=== PATIENT | female | born 1940 | race African-American/Black ===

== ENCOUNTER 2019-03-05 12:40 | Inpatient (IN) | payer MEDICARE, MEDICAID ==
[~2019-03-05] VITALS: Ht 160 cm; Wt 42.2 kg
[2019-03-05] MEDS ORDERED: IOHEXOL-350 100 ML BOTTLE ONE (14:35)
[2019-03-05 14:50] LABS: BASOPHILS % 0.4 % (0.0-2.0); EOSINOPHILS % 1.4 % (0.0-5.0); HEMATOCRIT. 31.4 % (36.0-48.0); HEMOGLOBIN. 10.5 g/dL (12.0-16.0); LYMPHOCYTES % 40.8 % (20.0-50.0); MEAN CORPUSCULAR HEMOGLOBIN 29.3 pg (28.0-32.0); MEAN CORPUSCULAR VOLUME 87.8 fL (81.0-99.0); MONOCYTES % 7.8 % (2.0-8.0); NEUTROPHILS % 49.6 % (40.0-76.0); PLATELET 145 x1000/uL (130-400); RED BLOOD CELL COUNT 3.58 mill/uL (4.2-5.4); RED CELL DISTRIBUTION WIDTH 13.1 % (11.6-14.6)
[2019-03-05 14:51] LABS: CHLORIDE 109 mEq/L (98-107)
[2019-03-05 14:52] LABS: INR 1.1; PROTHROMBIN TIME 11.7 sec (9.6-11.0)
[2019-03-05 14:56] LABS: ETHANOL BLOOD < 10 mg/dL
[2019-03-05 14:59] LABS: LDL CHOLESTEROL 71 mg/dL (5-100)
[2019-03-05 15:35] LABS: CLARITY URINE CLEAR (CLEAR); COLOR URINE YELLOW (YELLOW); KETONES URINE NEGATIVE (NEGATIVE); LEUKOCYTE ESTERASE URINE 1+ (NEGATIVE); NITRITE URINE NEGATIVE (NEGATIVE); OCCULT BLOOD URINE NEGATIVE (NEGATIVE); PROTEIN URINE NEGATIVE (NEGATIVE); SPECIFIC GRAVITY URINE 1.023 (1.005-1.030); UROBILINOGEN URINE 0.2 E.U./dL (0.2-1.0)
[2019-03-05] MEDS ORDERED: ASPIRIN 325MG TABLET PO ONE (15:45)
[2019-03-05 15:59] LABS: CANNABINOID URINE SCREEN NEGATIVE (NEGATIVE); PHENCYCLIDINE URINE SCREEN NEGATIVE (NEGATIVE)
[2019-03-05 16:00] LABS: *AMPHETAMINES SCREEN URINE NEGATIVE (NEGATIVE); *BARBITURATES SCREEN URINE NEGATIVE (NEGATIVE); *BENZODIAZEPINES SCREEN URINE NEGATIVE (NEGATIVE); *COCAINE SCREEN URINE NEGATIVE (NEGATIVE); METHADONE URINE SCREEN NEGATIVE (NEGATIVE); OPIATES URINE SCREEN NEGATIVE (NEGATIVE)
[2019-03-05] MEDS ORDERED: ACETAMINOPHEN 325MG TABLET PO PRN (16:00)
[2019-03-05] MEDS ORDERED: CLONIDINE 0.1MG TABLET PO PRN (16:00)
[2019-03-05] MEDS ORDERED: NITROGLYCERIN 0.4MG TABLET SL SL PRN (16:00)
[2019-03-05] MEDS ORDERED: MAGNESIUM/ALUMINUM HYDROXIDE/SIMETHICONE 30ML UDC PO PRN (16:00)
[2019-03-05] MEDS ORDERED: IPRATROPIUM/ALBUTEROL 0.5-3(2.5)MG/3ML NEB NEB PRN (16:00)
[2019-03-05] MEDS ORDERED: ONDANSETRON HCL 4MG/2ML INJ IV PRN (16:00)
[2019-03-05] MEDS ORDERED: DOCUSATE SODIUM 100MG CAPSULE PO PRN (16:00)
[2019-03-05] MEDS ORDERED: TRAMADOL 50MG TABLET PO PRN (16:00)
[2019-03-05] MEDS ORDERED: GUAIFENESIN 200MG/10ML SUGAR FREE UDC PO PRN (16:00)
[2019-03-05] MEDS ORDERED: MORPHINE SULFATE 2 MG/ML CPJ (NOT FOR IM USE) IV PRN (16:00)
[2019-03-05] MEDS ORDERED: LEVOFLOXACIN 500MG PREMIX 100 ML IV NR (17:26)
[2019-03-05 18:37] LABS: T4 FREE 0.91 ng/dL (0.76-1.46)
[2019-03-05 18:55] LABS: FOLIC ACID (FOLATE) SERUM >20 ng/mL ng/mL (>5.38)
[2019-03-05 19:05] LABS: VITAMIN B12 SERUM 512 pg/mL (211-911)
[2019-03-06] VITALS (9 sets, daily range): BP systolic 90–125; BP diastolic 24–79
[2019-03-06 02:07] LABS: CREATINE KINASE MB FRACTION 1.3 ng/mL (0.5-3.6)
[2019-03-06] MEDS ORDERED: ENOXAPARIN 60MG/0.6ML SYR SUBCUT SCH (04:00)
[2019-03-06] MEDS: FAMOTIDINE 20MG TABLET PO SCH (04:53)
[2019-03-06] MEDS: ATORVASTATIN CALCIUM 40MG TABLET PO SCH ×2 (04:53→20:45)
[2019-03-06 05:32] LABS: CREATINE KINASE MB FRACTION 1.5 ng/mL (0.5-3.6)
[2019-03-06] MEDS ORDERED: ASPIRIN 81MG EC TABLET PO SCH (09:00)
[2019-03-06] MEDS: ASPIRIN 81MG EC TABLET PO SCH (11:36)
[2019-03-06] MEDS: CLOPIDOGREL 75MG TABLET PO SCH (11:36)
[2019-03-06] MEDS: ENOXAPARIN 60MG/0.6ML SYR SUBCUT SCH (11:37)
[2019-03-06] MEDS ORDERED: LEVOFLOXACIN 500MG PREMIX 100 ML IV NR (12:00)
[2019-03-06] MEDS ORDERED: LEVOFLOXACIN 500MG PREMIX 100 ML IV SCH (17:27)
[2019-03-06] MEDS ORDERED: CYANOCOBALAMIN 1000MCG/ML VIAL IM NR (20:15)
[2019-03-07] VITALS (15 sets, daily range): BP systolic 94–125; BP diastolic 47–71
[2019-03-07] MEDS: FAMOTIDINE 20MG TABLET PO SCH (08:19)
[2019-03-07] MEDS: ASPIRIN 81MG EC TABLET PO SCH (08:19)
[2019-03-07] MEDS: CLOPIDOGREL 75MG TABLET PO SCH (08:19)
[2019-03-07] MEDS: TRIAMCINOLONE ACETONIDE 0.1% CREAM 15GM TOP SCH ×3 (08:20→21:32)
[2019-03-07] MEDS ORDERED: LEVOFLOXACIN 250MG PREMIX 50 ML IV SCH (09:00)
[2019-03-07] MEDS: ENOXAPARIN 60MG/0.6ML SYR SUBCUT SCH (10:12)
[2019-03-07] MEDS: ATORVASTATIN CALCIUM 40MG TABLET PO SCH (21:31)
[2019-03-08] VITALS (13 sets, daily range): BP systolic 91–125; BP diastolic 35–89
[2019-03-08] MEDS: FAMOTIDINE 20MG TABLET PO SCH (08:24)
[2019-03-08] MEDS: CLOPIDOGREL 75MG TABLET PO SCH (08:24)
[2019-03-08] MEDS: ASPIRIN 81MG EC TABLET PO SCH (08:24)
[2019-03-08] MEDS: TRIAMCINOLONE ACETONIDE 0.1% CREAM 15GM TOP SCH ×2 (08:31→21:32)
[2019-03-08] MEDS: ENOXAPARIN 60MG/0.6ML SYR SUBCUT SCH (10:48)
[2019-03-08] MEDS: ATORVASTATIN CALCIUM 40MG TABLET PO SCH (21:29)
[2019-03-09] VITALS (11 sets, daily range): BP systolic 83–123; BP diastolic 40–58
[2019-03-09] MEDS: FAMOTIDINE 20MG TABLET PO SCH (09:09)
[2019-03-09] MEDS: ASPIRIN 81MG EC TABLET PO SCH (09:09)
[2019-03-09] MEDS: ENOXAPARIN 60MG/0.6ML SYR SUBCUT SCH (09:09)
[2019-03-09] MEDS: CLOPIDOGREL 75MG TABLET PO SCH (09:09)
[2019-03-09] MEDS: TRIAMCINOLONE ACETONIDE 0.1% CREAM 15GM TOP SCH ×2 (09:11→21:05)
[2019-03-09] MEDS: ATORVASTATIN CALCIUM 40MG TABLET PO SCH (21:05)
[2019-03-10] VITALS (7 sets, daily range): BP systolic 94–110; BP diastolic 41–61
[2019-03-10] MEDS: CLOPIDOGREL 75MG TABLET PO SCH (09:07)
[2019-03-10] MEDS: ASPIRIN 81MG EC TABLET PO SCH (09:07)
[2019-03-10] MEDS: FAMOTIDINE 20MG TABLET PO SCH (09:07)
[2019-03-10] MEDS: ENOXAPARIN 60MG/0.6ML SYR SUBCUT SCH (09:08)
[2019-03-10] MEDS: TRIAMCINOLONE ACETONIDE 0.1% CREAM 15GM TOP SCH ×2 (09:08→20:26)
[2019-03-10] MEDS: ATORVASTATIN CALCIUM 40MG TABLET PO SCH (20:25)
[2019-03-11] VITALS: BP 133/68
[2019-03-11 04:00] VITALS: BP 117/59
[2019-03-11 07:46] LABS: BASOPHILS % 0.7 % (0.0-2.0); EOSINOPHILS % 2.1 % (0.0-5.0); HEMATOCRIT. 28.9 % (36.0-48.0); HEMOGLOBIN. 9.7 g/dL (12.0-16.0); LYMPHOCYTES % 35.3 % (20.0-50.0); MEAN CORPUSCULAR HEMOGLOBIN 29.2 pg (28.0-32.0); MEAN CORPUSCULAR VOLUME 87.2 fL (81.0-99.0); MEAN PLATELET VOLUME 11.1 fl (7.4-10.4); MONOCYTES % 9.6 % (2.0-8.0); NEUTROPHILS % 52.3 % (40.0-76.0); PLATELET 149 x1000/uL (130-400); RED BLOOD CELL COUNT 3.32 mill/uL (4.2-5.4); RED CELL DISTRIBUTION WIDTH 12.7 % (11.6-14.6)
[2019-03-11 08:00] VITALS: BP 111/57
[2019-03-11] MEDS: FAMOTIDINE 20MG TABLET PO SCH (09:06)
[2019-03-11] MEDS: TRIAMCINOLONE ACETONIDE 0.1% CREAM 15GM TOP SCH (09:06)
[2019-03-11] MEDS: ENOXAPARIN 60MG/0.6ML SYR SUBCUT SCH (09:07)
[2019-03-11] MEDS: ASPIRIN 81MG EC TABLET PO SCH (09:07)
[2019-03-11] MEDS: CLOPIDOGREL 75MG TABLET PO SCH (09:07)
[2019-03-11 12:00] VITALS: BP 111/58
[2019-03-11 13:43] VITALS: BP 111/58
== END 2019-03-11 15:55 | DRG 280 ==
LOC: ER 12:48 → EDBEDREQ 15:44 → 5EST 15:47 → SUPCPDRO 15:51 → EDBEDREQ 16:09 → ENRESERV 03-06 08:10 → 6EST 03-10 01:51
PROVIDERS: ADMIT Internal Medicine; ATTEND Internal Medicine
DX: I21.4 Non-ST elevation (NSTEMI) myocardial infarction (principal); G92 Toxic encephalopathy; E44.0 Moderate protein-calorie malnutrition; N39.0 Urinary tract infection, site not specified; I42.9 Cardiomyopathy, unspecified; I69.351 Hemiplegia and hemiparesis following cerebral infarction affecting right dominant side; Z68.1 Body mass index [BMI] 19.9 or less, adult; I10 Essential (primary) hypertension; D64.9 Anemia, unspecified; E78.00 Pure hypercholesterolemia, unspecified; E83.51 Hypocalcemia; I48.91 Unspecified atrial fibrillation; Z75.1 Person awaiting admission to adequate facility elsewhere; Z79.02 Long term (current) use of antithrombotics/antiplatelets; I69.320 Aphasia following cerebral infarction
CPT/HCPCS: 36415; 70496; 70551; 71045; 73560; 80048; 80061; 80305; 80320; 81003; 82550; 82553; 82607; 82746; 83540; 83550; 83721; 84439; 84443; 84484; 93005; 93306; 93970; 99285; A6261; J1650; J1956; J3420; Q9967; G0480